=== PATIENT | male | born 1990 | race Caucasian/White ===

== ENCOUNTER 2016-10-09 02:22 | Emergency (ER) | payer OTHER ==
[~2016-10-09] VITALS: Ht 177.8 cm; Wt 100.0 kg
[~2016-10-09 02:22] MED LIST: CLR10 PO
[2016-10-09 02:40] VITALS: TEMP 36.4; Ht 177.8 cm; Wt 100.0 kg
[2016-10-09 02:42] LABS: HEMATOCRIT 44.9 % (42-52); MEAN CELL VOLUME 83.3 fL (80-100); MEAN CORPUSCULAR HEMOGLOBIN 30.4 pg (25-34); MEAN CORPUSCULAR HGB CONC 36.5 g/dl (32-36); MEAN PLATELET VOLUME 9.1 fL (7.4-10.4); PLATELET COUNT 216 K/uL (130-400); RED BLOOD COUNT 5.39 M/uL (4.7-6.1); WHITE BLOOD COUNT 10.91 K/uL (4.8-10.8)
--- NOTE | 2016-10-09 02:49 | EMERGENCY ROOM VISIT NOTE ---
History Report prepared by Ashia: Rubina Rojas Under the Supervision of: Dr. Jesica Smith D.O. First contact with patient: 02:24 Stated Complaint: DRUG AND ALCOHOL OVERDOSE History of Present Illness The patient is a 26 year old male who presents to the Emergency Room with complaints of an alcohol and drug overdose that occurred prior to arrival. Per EMS, the patient was found unresponsive after taking a handful of ibuprofen, a handful of Melatonin, and a half a bottle of liquor. EMS additionally notes that the patient may have possible taken Percocet as well, but no prescription bottle was found. They note that the patient's roommates and friends are on their way to [facility] for the patient. The patient denies taking any medications for depression or anxiety and denies any history of it. He denies ever trying to attempt suicide in the past. The patient states that he took the medication and alcohol this evening because he felt like it. He states that he takes Zyrtec and Claritin. The history is limited secondary to alcohol intoxication. Per the patient's friend, the patient was at their fraternity house this evening when he went to his friend's room. When he presented there, he had a knife pointed at his stomach saying that he wanted to end it all. The patient' s friend states that he took the knife from the patient and kept all other knives away from him. He states that he took the patient to his room and calmed the patient down and tried to get him to rest. The patient's friend states that he later checked on the patient and the patient states that he took Percocet. He states that he then saw the patient take a handful of Ibuprofen and unknown white pills. The patient's friend states that the patient was also drinking alcohol this evening. The patient's friend states that the patient became unconsciousness and called 911 for assistance. He states that he tried sternal rubbing the patient, but states that he was minimally responsive. The patient's friend states that the patient is a good kid, but just has a lot going on currently. His friend states that he knows that the patient has been going through several issues recently. He states that one week ago, the patient said he was going to drive his car into a vera in [place], but later changed his mind. The patient's friend notes that the patient decided to seek help from [facility], but is unsure if the patient actually talked with [facility] or not. His friend is unsure if the patient has ever been evaluated as an inpatient in a psych facility in the past. Source of History: patient History Limited By: intoxication Onset: prior to arrival Position: other (global) Quality: other (alcohol and drug overdose) Review of Systems The history is limited secondary to alcohol and drug intoxication. Past Medical & Surgical Unobtainable secondary to alcohol intoxication. Family History Unobtainable secondary to alcohol intoxication. Social History Smoking Status: Never Smoker Alcohol Use: heavy Occupation Status: [employer] student Current/Historical Medications No Active Prescriptions or Reported Meds Allergies Coded Allergies: No Known Allergies (Unverified , 10/07/14) Physical Exam Vital Signs Date Time Temp Pulse Resp B/P Pulse Ox O2 Delivery O2 Flow Rate FiO2 10/09/16 06:05 63 10/09/16 06:00 64 18 93/36 96 Nasal Cannula 2.0 10/09/16 05:09 73 14 108/31 97 Nasal Cannula 2.0 10/09/16 03:53 74 17 118/48 97 Nasal Cannula 4.0 10/09/16 03:15 73 14 136/52 93 Nasal Cannula 2.0 10/09/16 02:56 93 10/09/16 02:40 36.4 86 17 153/73 97 Nasal Cannula 2.0 Physical Exam HEENT: Head - normocephalic and atraumatic Pupils are 4 mm and reactive to light. Nose - moist nasal mucosa without discharge. Mouth - moist buccal mucosa. Oropharynx is nonerythematous and there is no tonsillar exudate or edema noted. Neck: Supple; no JVD, nuchal rigidity, cervical lymphadenopathy, or auscultated bruits. Heart: Tachycardic rate and regular rhythm. There is a normal S1 and S2 with no murmurs, clicks, or gallops appreciated. Lungs: Clear to auscultation bilaterally with no wheezes, rales, or rhonchi. Abdomen: Soft, completely nontender, nondistended, with good bowel sounds. There are no palpable pulsatile masses or hepatosplenomegaly. There is no guarding, rigidity, or rebound noted. Extremities: No evidence of cyanosis, clubbing, or edema. There are easily palpable peripheral pulses. Skin: warm and dry with good turgor and no rashes. Psych: The patient was intoxicated upon presentation. He did explain to me that he took the overdose because he did not want to live anymore. Medical Decision & Procedures Laboratory Results 10/09/16 02:02 10/09/16 02:02 Test 10/09/16 02:02 10/09/16 02:32 10/09/16 05:30 10/09/16 06:15 Red Blood Count 5.39 M/uL (4.7-6.1) Mean Corpuscular Volume 83.3 fL (80-100) Mean Corpuscular Hemoglobin 30.4 pg (25-34) Mean Corpuscular Hemoglobin Concent 36.5 g/dl (32-36) RDW Standard Deviation 37.4 fL (36.4-46.3) RDW Coefficient of Variation 12.4 % (11.5-14.5) Mean Platelet Volume 9.1 fL (7.4-10.4) Anion Gap 9.0 mmol/L (3-11) Est Creatinine Clear Calc Drug Dose 122.7 ml/min Estimated GFR () 108.3 Estimated GFR (Non- 93.5 BUN/Creatinine Ratio 14.2 (10-20) Calcium Level 9.0 mg/dl (8.5-10.1) Total Bilirubin 0.4 mg/dl (0.2-1) Direct Bilirubin 0.1 mg/dl (0-0.2) Aspartate Amino Transf (AST/SGOT) 42 U/L (15-37) Alanine Aminotransferase (ALT/SGPT) 44 U/L (12-78) Alkaline Phosphatase 74 U/L (45-117) Total Creatine Kinase 954 U/L (39-308) Creatine Kinase MB 4.6 ng/ml (0.5-3.6) Creatine Kinase MB Ratio 0.5 (0-3.0) Troponin I < 0.015 ng/ml (0-0.045) Total Protein 7.6 gm/dl (6.4-8.2) Albumin 4.4 gm/dl (3.4-5.0) Thyroid Stimulating Hormone (TSH) 5.730 uIu/ml (0.300-4.500) Ethyl Alcohol mg/dL 215.0 mg/dl (0-3) Salicylates Level < 1.7 mg/dl (2.8-20) Acetaminophen Level < 2 ug/ml (10-30) Urine Color YELLOW Urine Appearance CLEAR (CLEAR) Urine pH 5.5 (4.5-7.5) Urine Specific Epworth 1.008 (1.000-1.030) Urine Protein NEG (NEG) Urine Glucose (UA) NEG (NEG) Urine Ketones NEG (NEG) Urine Occult Blood NEG (NEG) Urine Nitrite NEG (NEG) Urine Bilirubin NEG (NEG) Urine Urobilinogen NEG (NEG) Urine Leukocyte Esterase NEG (NEG) Urine Opiates Screen NEG (NEG) Urine Methadone, Qualitative NEG (NEG) Urine Barbiturates NEG (NEG) Urine Phencyclidine (PCP) Level NEG (NEG) Ur Amphetamine/Methamphetamine NEG (NEG) MDMA (Ecstasy) Screen NEG (NEG) Urine Benzodiazepines Screen NEG (NEG) Urine Cocaine Metabolite NEG (NEG) Urine Marijuana (THC) NEG (NEG) Laboratory results per my review. Medications Administered Medications (Trade) Dose Ordered Sig/Izzy Route Start Time Stop Time Status Last Admin Dose Admin Sodium Chloride (Nss 1000ml) 1,000 ml @ 999 mls/hr Q1H1M STAT IV 10/09/16 05:15 10/09/16 06:15 DC 10/09/16 05:24 999 MLS/HR Procedure IV normal saline hydration ED Course 0223: Past medical records reviewed. The patient was evaluated in room A1. A complete history and physical exam was performed. Laboratory studies were drawn as above. 0225: The patient was given .4mg of Narcan at this time. It did not seem to have any effect on the patient's mental status. 0232: The patient was moved to B11A. he was observing the senior asic engineer and pulse oximeter. 0319: I talked with the patients friends regarding tonights events. 0442: I reevaluated the patient and he is sound asleep and hemodynamically stable. 0549: I reevaluated the patient and he is resting and hemodynamically stable. He was able to give urine specimen. 0730: The patient was signed out to Dr. Casas at change of shift awaiting sobriety so that he could have a formal psychiatric evaluation. Medical Decision The patient is a 26 year old male who presents to the ED with a drug and alcohol overdose. Differential diagnosis includes suicide attempt, alcohol overdose, intentional overdose. Lab interpretation: white count 10.9, stable H&H, TSH 5.7, LFTs are normal, glucose 92, renal function is normal, total CK elevated at 954, alcohol 215, and salicylate and acetaminophen are negative. Repeat salicylate remains at less than 1.7 and acetaminophen remains at less than 2. This is a 26-year-old male patient who presents to the emergency department after his fraternity brothers called EMS. The patient was intoxicated and threatening to stab himself in the abdomen with a knife. They were able to get the knife away from him but then the patient took an overdose of Advil and melatonin. The fraternity brothers also thought that he took an overdose of Percocet. However, the patient's Tylenol level was undetectable and urine tox screen was negative for opiates. Once the patient is sober, he will have a formal psychiatric evaluation. I have signed the patient out to Dr. Casas at change of shift for disposition. Impression Primary Impression: Suicide attempt by substance overdose Additional Impression: Alcohol intoxication Scribe Attestation The scribe's documentation has been prepared under my direction and personally reviewed by me in its entirety. I confirm that the note above accurately reflects all work, treatment, procedures, and medical decision making performed by me. Departure Information Prescriptions No Active Prescriptions or Reported Meds Referrals Police, [facility] (PCP) Problem Qualifiers
[2016-10-09 03:00] LABS: ALT/SGPT 44 U/L (12-78); AST/SGOT 42 U/L (15-37); BLOOD UREA NITROGEN 16 mg/dl (7-18); BUN/CREATININE RATIO 14.2 (10-20); CARBON DIOXIDE 27 mmol/L (21-32); CHLORIDE 108 mmol/L (98-107); GLUCOSE 92 mg/dl (70-99); POTASSIUM 3.7 mmol/L (3.5-5.1); SODIUM 144 mmol/L (136-145)
[2016-10-09 03:03] LABS: ACETAMINOPHEN < 2 ug/ml (10-30)
[2016-10-09 03:11] LABS: ALKALINE PHOSPHATASE 74 U/L (45-117); CKMB/CK RATIO 0.5 (0-3.0)
[2016-10-09] MEDS ORDERED: SODIUM CHLORIDE 0.9% 1000ML 1,000 ML IV STA ×2 (05:15→07:09)
[2016-10-09 06:03] LABS: ACETAMINOPHEN < 2 ug/ml (10-30)
[2016-10-09 06:30] LABS: URINE APPEARANCE CLEAR (CLEAR); URINE BILIRUBIN NEG (NEG); URINE COLOR YELLOW; URINE NITRITE NEG (NEG); URINE PH 5.5 (4.5-7.5); URINE SPECIFIC GRAVITY 1.008 (1.000-1.030); UROBILINOGEN NEG (NEG)
[2016-10-09 06:36] LABS: MANUAL MICROSCOPIC REQUIRED? NO; REVIEW REQ? NO
[2016-10-09 07:03] LABS: BENZODIAZEPINE, URINE NEG (NEG); COCAINE,URINE NEG (NEG); PHENCYCLIDINE, URINE NEG (NEG)
--- NOTE | 2016-10-09 15:00 | EMERGENCY ROOM VISIT NOTE ---
ED Visit Note First contact with patient: 07:09 Pt signed out to me at change of shift. History and Physical verified by me. Pt medically cleared at 0730 for bed search. Patient was willing to sign himself in. He was evaluated by can help. Patient will be transferred by [facility] to the [facility]. No further medical orders. Elopement precautions will be taken.
[2016-10-09 15:50] VITALS: BP 127/68; PULSE 90; O2SAT 96
== END 2016-10-09 16:04 ==
LOC: EDBD 02:22 → C.ED 02:23 → C.EDB 16:04
DX: T39.312A Poisoning by propionic acid derivatives, intentional self-harm, initial encounter (principal); T50.992A Poisoning by other drugs, medicaments and biological substances, intentional self-harm, initial encounter; F10.129 Alcohol abuse with intoxication, unspecified